=== PATIENT | male | born 1975 | race Caucasian/White ===

== ENCOUNTER 2017-12-30 12:45 | Emergency (ER) | payer OTHER | END 2017-12-30 15:01 | disposition home or self-care (01) | LOC: M ED 12:45 | DX: K02.9 Dental caries, unspecified (principal); F17.210 Nicotine dependence, cigarettes, uncomplicated | CPT/HCPCS: 99283 ==

== ENCOUNTER 2019-07-13 07:29 | Emergency (ER) | payer OTHER ==
[~2019-07-13] VITALS: Ht 167.6 cm; Wt 74.3 kg
[~2019-07-13 07:29] MED LIST: ACET-683 PO; AUGM875T28 PO; IBUP-1022 PO
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
[2019-07-13] MEDS ORDERED: [UNRECOGNIZED DRUG - OTHER] IM ONE (08:45)
[2019-07-13] MEDS ORDERED: cefTRIAXone SOD 2 GM VIAL (J0696 PER 250MG) IM ONE (09:00)
[2019-07-13] MEDS ORDERED: LIDOCAINE 1% SDV 5 ML VIAL DILUENT ONE (09:00)
[2019-07-13] MEDS ORDERED: KEFL500C17 PO (09:07)
[2019-07-13 09:35] VITALS: BP 141/102
== END 2019-07-13 09:36 | disposition home or self-care (01) ==
LOC: M ED 07:29
DX: S60.551A Superficial foreign body of right hand, initial encounter (principal); W34.010A Accidental discharge of airgun, initial encounter; Y92.099 Unspecified place in other non-institutional residence as the place of occurrence of the external cause; Y93.89 Activity, other specified; Y99.9 Unspecified external cause status; F17.200 Nicotine dependence, unspecified, uncomplicated
CPT/HCPCS: 73130; 90471; 90715; 96372; 99283; J0696

== ENCOUNTER 2019-10-12 17:39 | Inpatient (IN) | payer OTHER ==
[~2019-10-12] VITALS: Ht 167.6 cm; Wt 75.3 kg
[~2019-10-12 17:39] MED LIST changes: +FENO145T7 PO; +FISH1000 PO; +KEFL500C17 PO; +LISI10TA4 PO; +METF-839 PO; +PRAV1TAB39 PO
[2019-10-12] MEDS ORDERED: GI COCKTAIL 50ML BTL(HYOSCYAMINE/MAALOX/LIDOCAINE VISCOUS)(1:3:1) PO ONE (18:15)
[2019-10-12] MEDS ORDERED: NS 1,000 ML IV ONE ×3 (18:15→21:45)
[2019-10-12 18:17] LABS: BASO # 0.1 10^3/uL (0.0-0.2); BASO % 0.5 % (0.0-1.0); EOS # 0.1 10^3/uL (0.0-0.5); EOS % 0.5 % (0.0-3.0); HEMATOCRIT 43.7 % (42.0-52.0); HEMOGLOBIN 15.8 g/dl (13.5-17.5); LYMPH # 1.6 10^3/uL (1.5-5.0); LYMPH % 12.1 % (24.0-44.0); MEAN CORPUSCULAR HEMOGLOBIN 31.5 pg (27.0-33.0); MEAN CORPUSCULAR HGB CONC 36.2 g/dl (32.0-36.5); MEAN CORPUSCULAR VOLUME 87.2 fl (80.0-96.0); MONO # 0.8 10^3/uL (0.0-0.8); MONO % 6.4 % (0.0-5.0); NEUTROPHILS # 10.3 10^3/uL (1.5-8.5); NEUTROPHILS % 79.7 % (36.0-66.0); PLATELET COUNT, AUTOMATED 195 10^3/uL (150-450); RED BLOOD COUNT 5.01 10^6/uL (4.30-6.10)
[2019-10-12] MEDS: MORPHINE 2 MG/ML 1ML VIAL (J2270) IV PRN ×2 (18:37→19:50)
[2019-10-12 18:51] LABS: ALBUMIN 4.2 GM/DL (3.2-5.2); ALT/SGPT 58 U/L (12-78); BILIRUBIN,DIRECT < 0.1 MG/DL (0.0-0.2); BILIRUBIN,TOTAL 0.5 MG/DL (0.2-1.0); BLOOD UREA NITROGEN 14 MG/DL (7-18); CALCIUM LEVEL 9.3 MG/DL (8.5-10.1); CARBON DIOXIDE LEVEL 24 MEQ/L (21-32); CHLORIDE LEVEL 99 MEQ/L (98-107); CREATININE FOR GFR 0.98 MG/DL (0.70-1.30); GLOMERULAR FILTRATION RATE > 60.0 (>60); GLUCOSE, FASTING 263 MG/DL (70-100); LIPASE 779 U/L (73-393); NT-PRO BNP 48 PG/ML (<125); SODIUM LEVEL 133 MEQ/L (136-145); TOTAL PROTEIN 8.2 GM/DL (6.4-8.2)
[2019-10-12] MEDS ORDERED: ISOVUE-370 76% 100ML VIAL As Ordered ONE (19:32)
--- NOTE | 2019-10-12 20:10 | REPVR ---
PROCEDURE INFORMATION: Exam: CT Angiography Chest With Contrast Exam date and time: 10/12/2019 7:42 PM Age: 44 years old Clinical indication: Chest pain; Additional info: Chets pain TECHNIQUE: Imaging protocol: Computed tomographic angiography of the chest with intravenous contrast. 3D rendering: MIP and/or 3D reconstructed images were created by the technologist. Radiation optimization: All CT scans at this facility use at least one of these dose optimization techniques: automated exposure control; mA and/or kV adjustment per patient size (includes targeted exams where dose is matched to clinical indication); or iterative reconstruction. Contrast material: ISOVUE 370; Contrast volume: 100 ml; Contrast route: INTRAVENOUS (IV); COMPARISON: CR PORTABLE CHEST X-RAY 10/12/2019 6:10 PM FINDINGS: Pulmonary arteries: Normal. No pulmonary emboli. Aorta: Unremarkable. No aortic aneurysm. No aortic dissection. Lungs: There are bilateral posterior dependent changes. No consolidation. Pleural space: Unremarkable. No pneumothorax. No pleural effusion. Heart: Unremarkable. No cardiomegaly. No pericardial effusion. Lymph nodes: Unremarkable. No enlarged lymph nodes. Bones/joints: Unremarkable. No acute fracture. Soft tissues: Unremarkable. IMPRESSION: No acute abnormality. Electronically signed by: Bennie Dietrich On 10/12/2019 20:09:40 PM
--- NOTE | 2019-10-12 20:16 | REPVR ---
PROCEDURE INFORMATION: Exam: CT Abdomen And Pelvis With Contrast Exam date and time: 10/12/2019 7:42 PM Age: 44 years old Clinical indication: Condition or disease; Pancreatic condition; Pancreatitis TECHNIQUE: Imaging protocol: Computed tomography of the abdomen and pelvis with intravenous contrast. Radiation optimization: All CT scans at this facility use at least one of these dose optimization techniques: automated exposure control; mA and/or kV adjustment per patient size (includes targeted exams where dose is matched to clinical indication); or iterative reconstruction. Contrast material: ISOVUE 370; Contrast volume: 100 ml; Contrast route: INTRAVENOUS (IV); COMPARISON: CT ABD/PEL W/IV CONTRAST ONLY 08/28/2019 2:36 PM FINDINGS: Lungs: There are bibasilar dependent changes. Liver: Hepatic steatosis. Gallbladder and bile ducts: Normal. No calcified stones. No ductal dilation. Pancreas: Pancreatic calcifications compatible with chronic pancreatitis. There is heterogeneous appearance of the pancreatic tail with mild adjacent infiltrative change. Appearance is stable from prior examination. Spleen: Normal. No splenomegaly. Adrenals: Normal. No mass. Kidneys and ureters: Normal. No hydronephrosis. Stomach and bowel: Mild diverticulosis without diverticulitis. Appendix: Normal appendix. Intraperitoneal space: Unremarkable. No free air. No significant fluid collection. Vasculature: Mild vascular calcification. Lymph nodes: Unremarkable. No enlarged lymph nodes. Bladder: Unremarkable as visualized. Reproductive: Unremarkable as visualized. Bones/joints: There are mild degenerative changes involving the spine. Soft tissues: Small fat containing umbilical hernia. Small left inguinal hernia contains fat. IMPRESSION: 1. Heterogeneous appearance of the pancreatic tail with mild adjacent infiltration, stable from prior examination. Possible subacute pancreatitis, neoplastic process is not excluded. 2. Hepatic steatosis. Electronically signed by: Bennie Dietrich On 10/12/2019 20:16:10 PM
[2019-10-12] MEDS ORDERED: HYDROMORPHONE HCL 0.5 MG/ 0.5 ML SYRINGE (J1170 PER 1) IV PRN ×2 (21:30→21:45)
[2019-10-12] MEDS ORDERED: LABETALOL 100MG/20ML VIAL IV STA (21:39)
[2019-10-12] MEDS ORDERED: hydrALAZINE 20MG/ML 1ML VIAL (J0360 PER 20MG) IV PRN (21:45)
[2019-10-12] MEDS ORDERED: NICOTINE 14 MG/24 HR TRANSDERMAL TD ONE (21:45)
[2019-10-12] MEDS ORDERED: OMEG10002 PO (21:52)
[2019-10-12] MEDS ORDERED: PRAV40TA2 PO (21:52)
[2019-10-12] MEDS ORDERED: LISI10TA4 PO (21:52)
[2019-10-12] MEDS ORDERED: FENO145T7 PO (21:52)
[2019-10-12] MEDS ORDERED: METF500T13 PO (21:52)
[2019-10-12] MEDS ORDERED: HYDROMORPHONE HCL 0.5 MG/ 0.5 ML SYRINGE (J1170 PER 1) IV ONE (22:00)
[2019-10-12] MEDS: NS 1,000 ML IV SCH (22:45)
[2019-10-12] MEDS: PANTOPRAZOLE 40MG VIAL (C9113 PER 1) IV SCH (23:00)
[2019-10-12 23:01] VITALS: BP 163/99
[2019-10-13 01:01] LABS: CK-MB VALUE MASS < 1.0 NG/ML (<3.6); CPK CREATINE PHOSPHOKINASE 45 U/L (39-308); MB/CK RELATIVE INDEX 2.22 (< OR =4); TROPONIN I < 0.02 NG/ML (< 0.10)
[2019-10-13] MEDS: KETOROLAC 30 MG/ML 1ML VIAL IV SCH ×3 (01:01→12:37)
--- NOTE | 2019-10-13 04:45 | REP ---
CHEST PORTABLE: REASON: Chest pain. FINDINGS: The technique utilized in obtaining the radiograph has magnified the cardiac silhouette and accentuated the interstitial markings. The superior mediastinal structures are midline. The cardiac silhouette is unremarkable in size, shape, and position. The diaphragmatic surfaces of the lungs are regular, and the costophrenic angles are clear. The pulmonary sam are clear. The imaged osseous structures are intact. IMPRESSION: There is no acute cardiopulmonary disease. Electronically Signed by Waylon Van DO 10/13/2019 09:16 A
[2019-10-13] MEDS: NS 1,000 ML IV SCH ×2 (05:25→07:53)
[2019-10-13 07:35] LABS: IONIZED CALCIUM 4.4 MG/DL (4.5-5.3)
[2019-10-13 07:40] LABS: BASO % 0.4 % (0.0-1.0); EOS # 0.1 10^3/uL (0.0-0.5); EOS % 1.8 % (0.0-3.0); HEMATOCRIT 38.5 % (42.0-52.0); LYMPH # 2.1 10^3/uL (1.5-5.0); LYMPH % 29.5 % (24.0-44.0); MEAN CORPUSCULAR HEMOGLOBIN 31.4 pg (27.0-33.0); MEAN CORPUSCULAR HGB CONC 34.8 g/dl (32.0-36.5); MEAN CORPUSCULAR VOLUME 90.2 fl (80.0-96.0); MONO # 0.7 10^3/uL (0.0-0.8); MONO % 9.7 % (0.0-5.0); NEUTROPHILS # 4.2 10^3/uL (1.5-8.5); NEUTROPHILS % 58.2 % (36.0-66.0); PLATELET COUNT, AUTOMATED 138 10^3/uL (150-450); RED BLOOD COUNT 4.27 10^6/uL (4.30-6.10); WHITE BLOOD COUNT 7.2 10^3/uL (4.0-10.0)
[2019-10-13 07:41] LABS: HEMOGLOBIN 13.4 g/dl (13.5-17.5)
[2019-10-13 07:58] LABS: ALBUMIN 3.1 GM/DL (3.2-5.2); ALT/SGPT 37 U/L (12-78); BILIRUBIN,TOTAL 0.5 MG/DL (0.2-1.0); BLOOD UREA NITROGEN 12 MG/DL (7-18); CALCIUM LEVEL 8.2 MG/DL (8.5-10.1); CARBON DIOXIDE LEVEL 24 MEQ/L (21-32); CHLORIDE LEVEL 107 MEQ/L (98-107); CHOLESTEROL LEVEL 236 MG/DL (<200); CHOLESTEROL RISK RATIO 7.612 (<5); CK-MB VALUE MASS < 1.0 NG/ML (<3.6); CPK CREATINE PHOSPHOKINASE 41 U/L (39-308); CREATININE FOR GFR 0.74 MG/DL (0.70-1.30); GLOMERULAR FILTRATION RATE > 60.0 (>60); GLUCOSE, FASTING 184 MG/DL (70-100); HDL CHOLESTEROL 31 MG/DL (>40); MB/CK RELATIVE INDEX 2.44 (< OR =4); NON-HDL-C 205 MG/DL; POTASSIUM SERUM 3.6 MEQ/L (3.5-5.1); SODIUM LEVEL 138 MEQ/L (136-145); TOTAL PROTEIN 6.7 GM/DL (6.4-8.2); TRIGLYCERIDES LEVEL 862 MG/DL (<150); TROPONIN I < 0.02 NG/ML (< 0.10)
[2019-10-13] MEDS ORDERED: PRAVASTATIN 20 MG TAB PO SCH (09:00)
[2019-10-13] MEDS ORDERED: FENOFIBRATE 145 MG TAB (TRICOR) PO SCH (09:00)
[2019-10-13] MEDS ORDERED: OMEGA-3 1000MG CAPSULE PO SCH (09:00)
[2019-10-13] MEDS: PANTOPRAZOLE 40MG VIAL (C9113 PER 1) IV SCH (09:01)
[2019-10-13 09:47] VITALS: BP 112/58
[2019-10-13 12:00] VITALS: BP 117/70
[2019-10-13] MEDS ORDERED: NIAC10TAB PO (12:59)
[2019-10-13] MEDS ORDERED: NIACIN 100 MG TAB PO SCH (13:00)
--- NOTE | 2019-10-13 13:17 | HPE ---
DATE OF ADMISSION: 10/12/2019 CHIEF COMPLAINT: Epigastric / abdominal pain. HISTORY OF PRESENTING ILLNESS: 44-year-old male with history of alcoholic pancreatitis presents to the emergency room with 2 day history of worsening epigastric pain that was noted when he was asleep, waking him up from sleep. Patient describes the pain as stabbing, goes across the left upper quadrant, epigastric region, to the back and across the chest, lasting constantly without abating, worse when he tries to lay on his right or left side, no medications taken at home, better when he lays back still, unable to eat, only had pretzels and chips due to severe abdominal pain. No nausea or vomiting. No fever. Patient denies any pleuritic chest pain. Says that the pain goes across the epigastrium into the left anterior chest. In the emergency room (ER), patient's EKG was sinus tachycardia, right axis deviation without acute ST-T wave changes. Troponin was negative. Patient was given a gastrointestinal (GI) cocktail with no improvement. He denies any drinking alcohol now, said that he quit several years ago. No prior history of gallstones. Patient was found to be hypertensive with systolic pressure of 169, diastolic of 106, secondary to severe pain. Hospitalist was called to admit. Patient otherwise denies any fever, chills, changes in vision, sore throat, rhinorrhea, diplopia, blurred vision, nasal congestion. No neck pain, joint pains, unusual rashes. No shortness of breath, palpitations, lightheadedness. Denies any diarrhea or constipation. No dysuria, urgency, or frequency. No paresthesias. No upper or lower extremity weakness. No changes in weight. Unable to sleep due to severe pain. Patient denies any anxiety or depression, suicidal or homicidal ideation. No polyphagia, polydipsia, or polyuria. Hospitalist is admitting for acute pancreatitis. PAST MEDICAL HISTORY: Alcoholic pancreatitis. Hypertriglyceridemia DM2, HTN, metabolic syndrome PAST SURGICAL HISTORY: Left knee repair in 1991. ALLERGIES: No known drug allergies. HOME MEDICATIONS: lisinopril 10 mg daily fenofibrate 145mg daily metformin 500 mg bid omega 3 fatty acids 1 cap daily pravastatin 40 mg daily SOCIAL HISTORY: Patient smokes a pack a day for the past 30 years, still smoking. History of alcohol abuse, has not drink Semaj of last year, 2018. Denies any recreational drug use. 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 Patient lives with his children. FAMILY HISTORY: Mother in [place] [facility], in her 60s with diabetes. Father of spine cancer, age 77. Half siblings, unknown medical problems. REVIEW OF SYSTEMS: Per history of presenting illness (HPI), 12-point system otherwise negative. Temperature 98, pulse 118, respiratory rate 18, blood pressure 169/106, 98% on room air. Generally: Awake, alert, oriented times three. Answers questions appropriately. Appears his stated age. No respiratory distress. Face is symmetric. No jugular venous distention (JVD) or thyromegaly. No icterus or jaundice. No stridor on exam. Lungs: Clear to auscultation. No wheezing, rales, or rhonchi. Air entry is equal bilaterally. No adventitious breath sounds. Heart: S1, S2, sinus tachycardia. No murmurs, rubs, or gallops. Abdomen: Soft, tender in epigastric and left upper quadrant. No rebound no guarding. Positive bowel sounds times four quadrants. Extremities: No cyanosis, clubbing, or any pitting edema. LABORATORY DATA: White count 13, hemoglobin 15, hematocrit 43, platelet count of 195. Sodium 133, potassium 4, chloride 99, bicarbonate 24, BUN 14, creatinine 0.98, glucose of 263, calcium of 9.3, total bilirubin 0.5, direct bilirubin less than 0.1, AST 27, ALT 58, alkaline phosphatase 88, BNP of 48, albumin 4.2, lipase 779, TSH 1.59, troponin 0. CT abdomen and pelvis, hepatic steatosis, bibasilar dependent changes in the lungs, pancreatic tail heterogenous appearance with mild infiltration, stable from prior exam, no splenomegaly, mild diverticulosis without diverticulitis, hepatic steatosis. CT chest, no acute abnormalities. ASSESSMENT AND PLAN: This is a 44-year-old male with history of alcoholic pancreatitis with prior admission, denies having any alcohol use since March 2019, presents with epigastric and left upper quadrant pain, nausea and vomiting for 2 days. IMPRESSION: 1. Acute pancreatitis. Will check lipid profile, calcium. No history of trauma. Patient denies anymore alcohol use. If persistent, may need evaluation of the hepatic duct with MRCP. At this time, patient will be kept nothing by mouth status but with sips of water or ice. IV fluids. Pain medication with Toradol 30 mg every 6 hours, IV Dilaudid as needed, Tylenol. 2. Active tobacco use. Tobacco cessation counseling. Nicotine patch. 3. History of alcohol abuse and alcoholic pancreatitis. Patient's last drink was in March 2019. 4. Hepatic steatosis most likely secondary to heavy alcohol abuse in the past. He has since quit drinking since March 2019. 5. DM. fingersticks q6hrs while npo. hypoglycemic protocol. insulin slidng scale coverage 6. Hypertensive urgency, pcu admit for iv hydralazine for better bp control. uncontrolled due to pain. prn iv dilaudid for pain. may resume home dose of lisinopril. 7.Hypertriglyceridemia could be the cause of pancreatitis. check lipid profile. resume home meds once n/v/abd pain resolve. Deep venous thrombosis (DVT) prophylaxis with compression stockings. MTDD
[2019-10-13 13:50] LABS: CK-MB VALUE MASS < 1.0 NG/ML (<3.6); CPK CREATINE PHOSPHOKINASE 54 U/L (39-308); MB/CK RELATIVE INDEX 1.85 (< OR =4); TROPONIN I < 0.02 NG/ML (< 0.10)
--- NOTE | 2019-10-13 14:34 | REP ---
REASON: Rule out pancreatic disease. COMPARISON: 08/29/2019 The exam was performed without intravenous contrast. There is no change in the appearance of the pancreas. Once again, there is pancreatic tail enlargement with numerable pancreatic tail microcytes, the appearance of which is unchanged from the prior exam. There are small amounts of fluid seen in the left anterior pararenal space have resolved. No new intraperitoneal or retroperitoneal fluid has developed. There is no significant change in the appearance of the imaged portion of the liver, spleen, adrenal glands or kidneys. They are within normal limits. There is a singular confluent pancreatic duct. There is no intrapancreatic ductal dilatation. No adenopathy had developed. The cortical and marrow signal is seen throughout the imaged osseous structures and is unchanged. IMPRESSION: 1. No change in the appearance of the pancreas. No evidence of pancreatic disease. 2. Resolved fluid as described above. 3. Once again, pancreatic tale neoplasm cannot be ruled out although there does not appear to be a significant change in the appearance of the pancreatic abnormalities as described above. Continue surveillance is warranted. Electronically Signed by Waylon Van DO 10/13/2019 04:01 P
[2019-10-13 16:00] VITALS: BP 131/69
[2019-10-13] MEDS ORDERED: METF-839 PO (16:44)
[2019-10-13] MEDS ORDERED: FENO145T7 PO (16:44)
[2019-10-13] MEDS ORDERED: ODOR1CAP2 PO (16:44)
[2019-10-13] MEDS ORDERED: PRAV40TA2 PO (16:44)
[2019-10-13] MEDS ORDERED: LISI10TA4 PO (16:44)
--- NOTE | 2019-10-14 16:00 | ECGEPIP ---
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
--- NOTE | 2019-10-14 16:02 | ECGEPIP ---
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
== END 2019-10-13 16:33 | disposition home or self-care (01) | DRG 282 ==
LOC: M ED 17:39 → M ED INP 21:34 → ENRESERV 10-13 06:04 → M PCU 10-13 09:46
PROVIDERS: ADMIT General Practice; ATTEND General Practice
DX: K85.20 Alcohol induced acute pancreatitis without necrosis or infection (principal); I10 Essential (primary) hypertension; E11.9 Type 2 diabetes mellitus without complications; F17.200 Nicotine dependence, unspecified, uncomplicated; Z79.899 Other long term (current) drug therapy; E78.1 Pure hyperglyceridemia; I16.0 Hypertensive urgency

== ENCOUNTER 2019-11-17 22:57 | Emergency (ER) | payer OTHER ==
[~2019-11-17 22:57] MED LIST changes: +METF500T13 PO; +NIAC1TAB14 PO; +ODOR1CAP2 PO; +OMEG10002 PO; +PRAV40TA2 PO
[2019-11-18] MEDS ORDERED: ISOVUE-370 76% 100ML VIAL ONE (00:27)
[2019-11-18] MEDS ORDERED: KETOROLAC 30 MG/ML 1ML VIAL ONE (00:41)
[2019-11-18] MEDS ORDERED: KETOROLAC 30 MG/ML 1ML VIAL As Ordered ONE (00:41)
[2019-11-18] MEDS ORDERED: GASTROGRAFIN SOLUTION 30ML (Q9963) As Ordered ONE (00:57)
[2020-01-01 13:33] LABS: BASO # 0.1 10^3/uL (0.0-0.2); BASO % 0.5 % (0.0-1.0); EOS # 0.1 10^3/uL (0.0-0.5); EOS % 0.6 % (0.0-3.0); HEMATOCRIT 45.1 % (42.0-52.0); HEMOGLOBIN 16.1 g/dl (13.5-17.5); LYMPH # 1.6 10^3/uL (1.5-5.0); LYMPH % 12.6 % (24.0-44.0); MEAN CORPUSCULAR HEMOGLOBIN 31.9 pg (27.0-33.0); MEAN CORPUSCULAR HGB CONC 35.7 g/dl (32.0-36.5); MEAN CORPUSCULAR VOLUME 89.5 fl (80.0-96.0); MONO # 1.1 10^3/uL (0.0-0.8); MONO % 8.5 % (0.0-5.0); NEUTROPHILS # 9.5 10^3/uL (1.5-8.5); NEUTROPHILS % 77.2 % (36.0-66.0); PLATELET COUNT, AUTOMATED 155 10^3/uL (150-450); RED BLOOD COUNT 5.04 10^6/uL (4.30-6.10); WHITE BLOOD COUNT 12.3 10^3/uL (4.0-10.0)
== END 2019-11-18 03:40 | disposition home or self-care (01) ==
LOC: M ED 22:57
DX: K86.1 Other chronic pancreatitis (principal); F17.210 Nicotine dependence, cigarettes, uncomplicated
CPT/HCPCS: 74177; 80048; 80076; 83690; 85025; 96374; 99284; J1885; Q9967

== ENCOUNTER 2021-01-16 00:32 | Emergency (ER) | payer OTHER ==
[~2021-01-16] VITALS: Ht 167.6 cm; Wt 81.8 kg
[~2021-01-16 00:32] MED LIST changes: +LISI10TA22 PO; -LISI10TA4 PO
--- OUTSIDE RECORDS SUMMARY | 2021-01-16 00:35 | CCD ---
Author Author [facility] Address Unknown Phone Unavailable Support Name Relationship Address Phone Gris Blakely Next Of Kin Unknown Unavailable Jose Luis BREAKER BOSSGris Hernandez Next Of Kin [address] [place] [address] UE Next Of Kin Unknown Unavailable GRIS BLAKELY Next Of Kin [address] [place], [place] [id number] Re-disclosure Warning The records that you are about to access may contain information from federally-assisted alcohol or drug abuse programs. If such information is present, then the following federally mandated warning applies: This information has been disclosed to you from records protected by federal confidentiality rules (42 CFR part 2). The federal rules prohibit you from making any further disclosure of this information unless further disclosure is expressly permitted by the written consent of the person to whom it pertains or as otherwise permitted by 42 CFR part 2. A general authorization for the release of medical or other information is NOT sufficient for this purpose. The Federal rules restrict any use of the information to criminally investigate or prosecute any alcohol or drug abuse patient.The records that you are about to access may contain highly sensitive health information, the redisclosure of which is protected by Article 27-F of the [facility] Public Health law. If you continue you may have access to information: Regarding HIV / AIDS; Provided by facilities licensed or operated by the [facility] Office of Mental Health; or Provided by the [facility] Office for People With Developmental Disabilities. If such information is present, then the following [facility] mandated warning applies: This information has been disclosed to you from confidential records which are protected by state law. State law prohibits you from making any further disclosure of this information without the specific written consent of the person to whom it pertains, or as otherwise permitted by law. Any unauthorized further disclosure in violation of state law may result in a fine or long term sentence or both. A general authorization for the release of medical or other information is NOT sufficient authorization for further disc losure. Medications No Information Insurance Providers Payer name Policy type / Coverage type Policy ID Covered republican ID Covered republican's relationship to medeiros Policy Medeiros Plan Information [facility] P [id number] S [id number] Medicaid S [id number] [facility] P [id number] S [id number] MEDICAID [id number] SP [id number] [place] O [id number] S [id number] MEDICAID S [id number] S [id number] MEDICARE P [id number] S [id number] MEDICARE [id number] SP [id number] [place] [id number] SP [id number] [place] O [id number] S [id number] Problems, Conditions, and Diagnoses No Information Surgeries/Procedures No Information Results No Information Social History No Information
[2021-01-16 00:39] VITALS: BP 139/86
--- OUTSIDE RECORDS SUMMARY | 2021-02-10 08:17 | CCD ---
Author Author [facility] Address Unknown Phone Unavailable Support Name Relationship Address Phone Gris Blakely Next Of Kin Unknown Unavailable Jose Luis ACCOUNT RESOLUTION ANALYSTGris Hernandez Next Of Kin [address] [place], [place] [id number] UE Next Of Kin Unknown Unavailable GRIS BLAKELY Next Of Kin [address] [place], [place] [id number] Re-disclosure Warning The records that you are [...] is protected by Article 27-F of the [facility] Public Health law. If you continue you may have access to information: Regarding HIV / AIDS; Provided by facilities licensed or operated by the [facility] Office of Mental Health; or Provided by the [facility] Office for People With Developmental Disabilities. If such information is present, then the following [facility] mandated warning applies: This information has been [...] law may result in a fine or chcf sentence or both. A general authorization for the release of medical or other information is NOT sufficient authorization for further disc losure. Medications No Information Insurance Providers Payer name Policy type / Coverage type Policy ID Covered democrat ID Covered democrat's relationship to medeiros Policy Medeiors Plan Information [facility] [facility] P [id number] S [id number] Medicaid S [id number] S [id number] [facility] [facility] [place] P [id number] S [id number] MEDICAID [id number] SP [id number] [place] O [id number] S [id number] MEDICAID S [id number] S [id number] MEDICARE P [id number] S [id number] MEDICARE [id number] SP [id number] [place] [id number] SP [id number] [id number] [place] O [id number] S [id number] Problems, Conditions, and Diagnoses No Information Surgeries/Procedures No Information Results No Information Social History No Information
--- OUTSIDE RECORDS SUMMARY | 2021-02-10 08:17 | CCD ---
Author Author [facility] Address Unknown Phone Unavailable Support Name Relationship Address Phone Gris Blakely Next Of Kin Unknown Unavailable Jose Luis HYDRAULIC MECHANICGris Hernandez Next Of Kin [address] [place], [place] [phone] UE Next Of Kin Unknown Unavailable GRIS BLAKELY Next Of Kin [address] [place], [place] [id number] Re-disclosure Warning The records that you are [...] is protected by Article 27-F of the [facility] Public Health law. If you continue you may have access to information: Regarding HIV / AIDS; Provided by facilities licensed or operated by the [facility] Office of Mental Health; or Provided by the [facility] Office for People With Developmental Disabilities. If such information is present, then the following [facility] mandated warning applies: This information has [...] ID Covered democrat's relationship to medeiros Policy Medeiros Plan Information [facility] P [id number] S [id number] Medicaid S [id number] S [id number] [facility] [place] P [id number] S [id number] MEDICAID [id number] SP [id number] [place] O [id number] S [id number] MEDICAID S [id number] S [id number] MEDICARE P [id number] S [id number] 2C1 MEDICARE [id number] SP [id number] [id number] [place] [id number] SP [id number] 2C1 [place] O [id number] S [id number] Problems, Conditions, and Diagnoses No Information Surgeries/Procedures No Information Results No Information Social History No Information
== END 2021-01-16 01:28 | disposition left against medical advice (07) ==
LOC: M ED 00:32
DX: Z53.21 Procedure and treatment not carried out due to patient leaving prior to being seen by health care provider (principal)

== ENCOUNTER 2022-02-12 05:41 | Emergency (ER) | payer OTHER ==
[~2022-02-12] VITALS: Ht 167.6 cm; Wt 72.7 kg
[2022-02-12 06:31] LABS: BASO # 0.1 10^3/uL (0.0-0.2); BASO % 1.4 % (0.0-1.0); EOS # 0.4 10^3/uL (0.0-0.5); EOS % 3.7 % (0.0-3.0); HEMATOCRIT 47.7 % (42.0-52.0); HEMOGLOBIN 16.8 g/dl (13.5-17.5); LYMPH # 2.5 10^3/uL (1.5-5.0); LYMPH % 26.1 % (24.0-44.0); MEAN CORPUSCULAR HEMOGLOBIN 32.6 pg (27.0-33.0); MEAN CORPUSCULAR HGB CONC 35.2 g/dl (32.0-36.5); MEAN CORPUSCULAR VOLUME 92.6 fl (80.0-96.0); MONO # 0.8 10^3/uL (0.0-0.8); NEUTROPHILS # 5.8 10^3/uL (1.5-8.5); PLATELET COUNT, AUTOMATED 155 10^3/uL (150-450); RED BLOOD COUNT 5.15 10^6/uL (4.30-6.10); WHITE BLOOD COUNT 9.7 10^3/uL (4.0-10.0)
[2022-02-12 07:05] LABS: CK-MB VALUE MASS < 1.0 NG/ML (<3.6); CPK CREATINE PHOSPHOKINASE 101 U/L (39-308); MB/CK RELATIVE INDEX 0.99 (< OR =4)
[2022-02-12 07:15] LABS: ALBUMIN 4.1 GM/DL (3.2-5.2); ALT/SGPT 106 U/L (12-78); BILIRUBIN,TOTAL 0.4 MG/DL (0.2-1.0); BLOOD UREA NITROGEN 11 MG/DL (7-18); CALCIUM LEVEL 8.9 MG/DL (8.5-10.1); CARBON DIOXIDE LEVEL 27 MEQ/L (21-32); CHLORIDE LEVEL 102 MEQ/L (98-107); CREATININE FOR GFR 0.88 MG/DL (0.70-1.30); ETHYL ALCOHOL (ETHANOL) 0.282 % (0.000-0.010); GLOMERULAR FILTRATION RATE > 60.0 (>60); GLUCOSE, FASTING 165 MG/DL (70-100); LIPASE 338 U/L (73-393); SODIUM LEVEL 134 MEQ/L (136-145); TOTAL PROTEIN 8.2 GM/DL (6.4-8.2)
[2022-02-12] MEDS ORDERED: PANTOPRAZOLE 40MG VIAL IV ONE (08:50)
[2022-02-12] MEDS ORDERED: MORPHINE 4 MG/ML 1ML VIAL/SYRINGE IV ONE (08:50)
[2022-02-12] MEDS ORDERED: NS 1,000 ML IV ONE (08:50)
[2022-02-12] MEDS ORDERED: ISOVUE-370 76% 100ML VIAL As Ordered ONE (08:56)
[2022-02-12] MEDS ORDERED: OXAZEPAM 15MG CAP PO ONE (11:10)
[2022-02-12 16:10] VITALS: BP 150/85
== END 2022-02-12 16:12 | disposition short-term general hospital (02) ==
LOC: M ED 05:41
DX: K86.1 Other chronic pancreatitis (principal); F10.20 Alcohol dependence, uncomplicated; S20.212A Contusion of left front wall of thorax, initial encounter; W22.8XXA Striking against or struck by other objects, initial encounter; K76.0 Fatty (change of) liver, not elsewhere classified; M51.24 Other intervertebral disc displacement, thoracic region; E78.00 Pure hypercholesterolemia, unspecified; I10 Essential (primary) hypertension; E11.9 Type 2 diabetes mellitus without complications; F17.200 Nicotine dependence, unspecified, uncomplicated; Z79.84 Long term (current) use of oral hypoglycemic drugs; Z79.899 Other long term (current) drug therapy
CPT/HCPCS: 71045; 74177; 80053; 82077; 82550; 82553; 83690; 85025; 87635; 93005; 96361; 96374; 96375; 99284; C9113; J2270

== ENCOUNTER 2022-03-18 20:51 | Emergency (ER) | payer OTHER ==
[~2022-03-18] VITALS: Ht 167.6 cm; Wt 66.0 kg
[2022-03-19 00:31] LABS: ETHYL ALCOHOL (ETHANOL) 0.297 % (0.000-0.010)
[2022-03-19 00:33] LABS: BLOOD UREA NITROGEN 9 MG/DL (9-23); CALCIUM LEVEL 8.4 MG/DL (8.5-10.1); CARBON DIOXIDE LEVEL 24 MMOL/L (20-31); CHLORIDE LEVEL 107 MMOL/L (98-107); CREATININE FOR GFR 0.52 MG/DL (0.70-1.30); GLOMERULAR FILTRATION RATE > 60.0 (>60); GLUCOSE, FASTING 245 MG/DL (60-100); POTASSIUM SERUM 3.8 MMOL/L (3.5-5.1); SODIUM LEVEL 138 MMOL/L (136-145)
[2022-03-19 00:51] LABS: HEMATOCRIT 43.7 % (42.0-52.0); MEAN CORPUSCULAR HEMOGLOBIN 32.3 pg (27.0-33.0); MEAN CORPUSCULAR HGB CONC 34.3 g/dl (32.0-36.5); PLATELET COUNT, AUTOMATED 109 10^3/uL (150-450); RED BLOOD COUNT 4.65 10^6/uL (4.30-6.10); WHITE BLOOD COUNT 8.4 10^3/uL (4.0-10.0)
[2022-03-19 06:23] LABS: AMPHETAMINES LEVEL URINE NEGATIVE (NEGATIVE); BARBITURATES URINE NEGATIVE (NEGATIVE); BENZODIAZEPINES URINE NEGATIVE (NEGATIVE); COCAINE METABOLITE URINE NEGATIVE (NEGATIVE); METHADONE URINE NEGATIVE (NEGATIVE); OPIATES URINE NEGATIVE (NEGATIVE); PHENCYCLIDINE URINE NEGATIVE (NEGATIVE)
[2022-03-19 06:35] LABS: CANNABINOIDS URINE POSITIVE (NEGATIVE)
[2022-03-19] MEDS ORDERED: HOME MED LIST COMPLETE! XX SCH (10:05)
[2022-03-19] MEDS ORDERED: OXAZEPAM 10MG CAP PO ONE (10:55)
[2022-03-19 11:33] VITALS: BP 177/85
== END 2022-03-19 11:39 | disposition home or self-care (01) ==
LOC: M ED 20:51
DX: F10.10 Alcohol abuse, uncomplicated (principal); F17.200 Nicotine dependence, unspecified, uncomplicated

== ENCOUNTER 2023-05-19 01:09 | Emergency (ER) | payer OTHER ==
[~2023-05-19] VITALS: Ht 170.2 cm; Wt 68.2 kg
[2023-05-19 01:15] VITALS: BP 170/110; TEMP 98.9; O2SAT 96
[2023-05-19 02:39] LABS: BASO # 0.1 10^3/uL (0.0-0.2); BASO % 0.5 % (0.0-1.0); EOS % 0.3 % (0.0-3.0); HEMATOCRIT 43.7 % (42.0-52.0); HEMOGLOBIN 15.7 g/dl (13.5-17.5); LYMPH # 1.6 10^3/uL (1.5-5.0); LYMPH % 15.9 % (24.0-44.0); MEAN CORPUSCULAR HEMOGLOBIN 33.3 pg (27.0-33.0); MEAN CORPUSCULAR HGB CONC 35.9 g/dl (32.0-36.5); MEAN CORPUSCULAR VOLUME 92.6 fl (80.0-96.0); MONO % 9.5 % (2.0-8.0); NEUTROPHILS # 7.4 10^3/uL (1.5-8.5); NEUTROPHILS % 73.4 % (36.0-66.0); PLATELET COUNT, AUTOMATED 145 10^3/uL (150-450); RED BLOOD COUNT 4.72 10^6/uL (4.30-6.10)
[2023-05-19 02:59] LABS: LIPASE 33 U/L (12-53)
[2023-05-19 03:02] LABS: ALKALINE PHOSPHATASE 116 U/L (46-116); ALT/SGPT 50 U/L (7.0-40); AST/SGOT 43 U/L (<34); BILIRUBIN,DIRECT 0.3 MG/DL (<0.4); BILIRUBIN,TOTAL 0.7 MG/DL (0.3-1.2); BLOOD UREA NITROGEN 5 MG/DL (9-23); CALCIUM LEVEL 8.6 MG/DL (8.5-10.1); CARBON DIOXIDE LEVEL 26 MMOL/L (20-31); CHLORIDE LEVEL 99 MMOL/L (98-107); CREATININE FOR GFR 0.48 MG/DL (0.70-1.30); GLOMERULAR FILTRATION RATE > 60.0 (>60); GLUCOSE, FASTING 315 MG/DL (60-100); POTASSIUM SERUM 3.9 MMOL/L (3.5-5.1); SODIUM LEVEL 131 MMOL/L (136-145); TOTAL PROTEIN 7.2 G/DL (5.7-8.2)
== END 2023-05-19 03:18 | disposition left against medical advice (07) ==
LOC: M ED 01:09 → EDBD 01:09 → M ED 03:18
DX: Z53.21 Procedure and treatment not carried out due to patient leaving prior to being seen by health care provider (principal)

== ENCOUNTER 2024-05-01 16:57 | Emergency (ER) | payer OTHER ==
[~2024-05-01] VITALS: Ht 170.2 cm; Wt 59.8 kg
[2024-05-01 17:03] VITALS: BP 137/89; TEMP 97.4; O2SAT 96
== END 2024-05-01 17:42 | disposition left against medical advice (07) ==
LOC: M ED 16:57
DX: Z53.21 Procedure and treatment not carried out due to patient leaving prior to being seen by health care provider (principal)

== ENCOUNTER → 2024-10-10 | Outpatient (REF) ==
[~2024-10-10] MED LIST changes: -PRAV40TA2 PO; +PRAV40TA85 PO
== END ==
LOC: M LAB 13:14
PROVIDERS: ATTEND Pathology Forensic Pathology
DX: Z01.89 Encounter for other specified special examinations (principal)